=== PATIENT | female | born 1975 | race Asian ===

== ENCOUNTER 2016-05-11 09:21 | Outpatient (CLI) | payer OTHER ==
--- NOTE | 2016-05-12 08:30 | Mammography Report ---
BILATERAL DIGITAL SCREENING MAMMOGRAM with CAD: 05/11/16 09:21:00 CLINICAL: Routine screening. COMPARISON:05/06/15 and 02/17/11 left mammogram. FINDINGS: There are scattered areas of fibroglandular density.A left lower inner focal asymmetry is unchanged compared to prior exams. No new mass, architectural distortion or suspicious calcifications. IMPRESSION: No mammographic evidence of malignancy. BI-RADS CATEGORY: 2 -- Benign RECOMMENDATION: Routine mammographic screening in one year. COMMENT: Patient follow-up letters are generated by our [employer] application.
== END 2016-05-11 09:22 | disposition home or self-care (01) ==
LOC: SPVWC 09:21
PROVIDERS: ATTEND Family Medicine
DX: Z12.31 Encounter for screening mammogram for malignant neoplasm of breast (principal)
CPT/HCPCS: 77067; G0202

== ENCOUNTER 2016-12-30 09:35 | Outpatient (CLI) | payer OTHER ==
--- NOTE | 2016-12-30 11:37 | Fluoroscopy Report ---
BARIUM SWALLOW: History: Dysphagia. The patient swallows barium without difficulty demonstrating normal coordination. The cervical and thoracic portions of the esophagus demonstrate normal contours and there is normal peristalsis. There is no evidence of a hiatus hernia and no reflux is demonstrated. IMPRESSION: Normal study.
== END 2016-12-30 09:36 | disposition home or self-care (01) ==
LOC: FLUORO 09:35
PROVIDERS: ATTEND Family Medicine
DX: R13.10 Dysphagia, unspecified (principal)
CPT/HCPCS: 74220

== ENCOUNTER 2017-05-31 08:57 | Outpatient (CLI) | payer OTHER ==
--- NOTE | 2017-05-31 16:00 | Ultrasound Report ---
ABDOMINAL ULTRASOUND: 05/31/17 08:57:00 CLINICAL: Epigastric pain. FINDINGS: High-resolution ultrasound demonstrates a normal liver with normal size, contour and echogenicity. The right lobe measures 15.2 cm in length. No liver mass. Normal hepatic vasculature and inferior vena cava. Gallbladder is partially contracted with too numerous to count shadowing calculi and echogenic sludge. The gallbladder is tender to pressure of the probe. The gallbladder wall measures 2.0mm. Normal intrahepatic and extra hepatic bile ducts. The common bile duct measures 3.0 mm diameter. The pancreas is suboptimally imaged due to bowel gas and body habitus. The proximal pancreatic body is normal but the pancreatic head and tail are not well imaged. Normal abdominal aorta measuring 1.8 cm. A normal spleen measures 8.9 x 3.5 x 4.7cm. Normal renal echogenicity and normal non-dilated renal collecting systems and ureters. The right kidney measures 9.3 x 4.0 x 4.7cm. The left kidney measures 10.4 x 5.9 x 5.5cm. An upper pole left renal cyst measures 2.7 x 2.4 x 2.2 cm. No renal mass or calculus. No ascites. IMPRESSION: 1. Cholelithiasis with a partially contracted gallbladder and a positive Burgos's sign. However, no other signs to suggest acute cholecystitis. 2. Normal bile ducts. 3. Limited imaging of the pancreas.
== END 2017-05-31 08:58 | disposition home or self-care (01) ==
LOC: SPVWC 08:57
PROVIDERS: ATTEND Internal Medicine Gastroenterology
DX: K80.20 Calculus of gallbladder without cholecystitis without obstruction (principal); N28.1 Cyst of kidney, acquired
CPT/HCPCS: 76700

== ENCOUNTER 2017-06-06 10:37 | Outpatient (CLI) | payer OTHER ==
--- NOTE | 2017-06-06 14:24 | Mammography Report ---
BILATERAL DIGITAL SCREENING MAMMOGRAM with CAD: 06/06/17 10:37:00 CLINICAL: Routine screening. COMPARISON:05/11/16 FINDINGS: The breasts are heterogeneously dense, which may obscure small masses.A left lower inner focal asymmetry is less prominent than on the last exam. No mass, architectural distortion or suspicious calcifications. IMPRESSION: No mammographic evidence of malignancy. BI-RADS CATEGORY: 2 - - Benign RECOMMENDATION: Routine mammographic screening in one year. COMMENT: Patient follow-up letters are generated by our [employer] application.
== END 2017-06-06 10:38 | disposition home or self-care (01) ==
LOC: SPVWC 10:37
PROVIDERS: ATTEND Family Medicine
DX: Z12.31 Encounter for screening mammogram for malignant neoplasm of breast (principal)
CPT/HCPCS: 77067

== ENCOUNTER 2017-06-27 09:14 | Outpatient (CLI) | payer OTHER ==
--- NOTE | 2017-06-28 08:08 | Mammography Report ---
BONE DEXA:06/27/17 09:14:00 CLINICAL: Long-term drug therapy. No comparison. TECHNIQUE: Two site bone DEXA performed on an Hologic scanner. FINDINGS: The average BMD of the lumbar spine L1-L4 is 1.031g/cm squared with a T-score of -0.1 and a Z-score of +0.1. The average BMD of the left hip is 0.951g/cm squared with a T-score of +0.1 and a Z-score of +0.3. IMPRESSION: WHO classification: Normal with average fracture risk based on both spine and left hip measurements. RECOMMENDATION: Clinical correlation and routine screening. DEFINITIONS: BMD = Bone Mineral Density T-score = BMD related to mean peak bone mass of young adult (mean expressed in Standard Deviation) Z-score = Age matched BMD expressed in SD World Health Organization (WHO) Diagnostic Criteria Normal T-score > -1 SD Osteopenia T-score between -1 and -2.4 SD Osteoporosis T-score -2.5 SD or below NOTE: BMD is not the only risk factor for fracture. One should also consider factors such as the patient's age, risk of falling, previous osteoporotic fracture, family history of osteoporotic fractures, current smoker, and low body weight. Z-scores are not calculated if >80 years of age.
== END 2017-06-27 09:15 | disposition home or self-care (01) ==
LOC: SPVWC 09:14
PROVIDERS: ATTEND Family Medicine
DX: Z13.820 Encounter for screening for osteoporosis (principal); Z79.899 Other long term (current) drug therapy
CPT/HCPCS: 77080

== ENCOUNTER 2017-07-12 05:53 | Day surgery (SDC) | payer OTHER ==
[2017-07-12] MEDS ORDERED: ANCEF/STERILE WATER 2 GM/20 ML IV NR (06:00)
[2017-07-12] MEDS ORDERED: NACL BACTERIOSTATIC INFILTRATI ONE (06:46)
--- NOTE | 2017-07-12 07:25 | Anesthesia Day of Surgery ---
Anesthesia Day of Surgery - Day of Surgery Patient Examined: Yes Patient H&P Reviewed: Yes Patient is NPO: Yes
--- NOTE | 2017-07-12 07:25 | Anesthesia Consultation ---
Anesthesia Consult and Med Hx Date of service: 07/12/17 - Airway Anesthetic Teeth Evaluation: Good, Crowns ROM Head & Neck: Adequate Mental/Hyoid Distance: Adequate Mallampati Class: Class I Intubation Access Assessment: Good - Pulmonary Exam CTA: Yes - Cardiac Exam Cardiac Exam: RRR - Pre-Operative Health Status ASA Pre-Surgery Classification: ASA2 Proposed Anesthetic Plan: General - Central Nervous System Hx Psychiatric Problems: No - Gastrointestinal Hx Gastroesophageal Reflux Disease: Yes - Other Systems Hx Cancer: No - Additional Comments Anesthesia Medical History Comments: pulmonary sarcoidosis, interstitial cystitis
[2017-07-12] MEDS ORDERED: MARCAINE 0.25% INFILTRATI ONE ×2 (07:41→08:30)
[2017-07-12] MEDS ORDERED: TORADOL IV PRN (07:43)
[2017-07-12] MEDS ORDERED: REGLAN IV PRN (07:43)
[2017-07-12] MEDS ORDERED: DEMEROL IV PRN (07:43)
[2017-07-12] MEDS ORDERED: NARCAN 0.4 MG/1 ML IV PRN (07:43)
[2017-07-12] MEDS ORDERED: PERCOCET 5/325 PO PRN (07:43)
[2017-07-12] MEDS ORDERED: ZOFRAN IV PRN (07:43)
[2017-07-12] MEDS ORDERED: LACTATED RINGERS 1,000 ML IV SCH ×2 (07:44→08:00)
[2017-07-12] MEDS ORDERED: SUBLIMAZE ONE (07:54)
[2017-07-12] MEDS ORDERED: DIPRIVAN 10 MG/ML IV ONE (07:54)
[2017-07-12] MEDS ORDERED: PEPCID IV NR (08:00)
[2017-07-12] MEDS ORDERED: VERSED IV NR (08:00)
[2017-07-12] MEDS ORDERED: TRANSDERM-SCOP TD NR (08:00)
[2017-07-12] MEDS ORDERED: DILAUDID ONE (08:27)
[2017-07-12] MEDS ORDERED: ZOFRAN ONE ×2 (08:30→08:55)
[2017-07-12] MEDS ORDERED: ZEMURON IV ONE (08:30)
[2017-07-12] MEDS ORDERED: XYLOCAINE MPF 2% ONE (08:55)
[2017-07-12] MEDS ORDERED: NEOSTIGMINE ONE (08:55)
[2017-07-12] MEDS ORDERED: ROBINUL ONE (08:55)
--- NOTE | 2017-07-12 09:11 | Post Operative Note ---
Pre-op diagnosis: gallstones with bilairy colic Post-op diagnosis: same Findings: as above Procedure: laparoscopic cholecystectomy Anesthesia: GETA Surgeon: STEPHEN RAZA Senior Mechanical Development Engineer: TIFF KELLOGG Estimated blood loss: minimal Pathology: list (gallbladder) Specimen disposition: to lab Condition: stable Disposition: PACU
--- NOTE | 2017-07-12 09:13 | Discharge Summary ---
Short Stay Discharge Plan Weight Bearing Status: Full Weight Bearing Diet: regular Wound: open to air Follow up with: NAYAN HERNANDEZ MD [Primary Care Provider] - 7 Days Prescriptions: Ondansetron [Zofran TAB] 4 mg PO Q8HR PRN #14 tablet PRN Reason: Nausea oxyCODONE /ACETAMINOPHEN [Percocet 5/325] 1 tab PO Q4HR PRN #20 tab PRN Reason: Pain
[2017-07-12] MEDS: DILAUDID IV PRN ×3 (09:20→09:50)
--- NOTE | 2017-07-12 09:37 | Operative Report ---
A 41-year-old female. PREOPERATIVE DIAGNOSIS: Biliary colic with gallstones. POSTOPERATIVE DIAGNOSIS: Biliary colic with gallstones. OPERATIVE PROCEDURE: Laparoscopic cholecystectomy. ANESTHESIA: General endotracheal. SURGEON: Ziyad Dillard MD.. OCCUPATIONAL NURSE: Dr. Leung. SPECIMEN: Gallbladder. BLOOD LOSS: Minimal. INDICATIONS: A 41-year-old female patient presenting with right upper quadrant pain, nausea. Gallbladder ultrasound showed multiple stones and wall thickening. Liver functions are normal. She has undergone an abdominal hysterectomy several years ago. FINDINGS: Gallbladder had no adhesions, no obvious wall thickening. It contained multiple medium and large multifaceted cholesterol stones. Cystic duct is of normal caliber. Cystic duct entry into the gallbladder, it was a few centimeters down distally than the usual location. The liver showed no evidence of fatty infiltration. Minimal adhesions in the lower abdomen between the omentum and the anterior abdominal wall was noted. No abdominal wall hernia evident. DESCRIPTION OF PROCEDURE: After satisfactory induction of general endotracheal anesthesia, abdomen was prepped and draped. A supraumbilical transverse incision was made and a Veress needle was inserted in the peritoneal cavity. After adequate carbon dioxide insufflation up to 15 mmHg, a 5 mm trocar was inserted. Through this, a 5-mm 30-degree angle scope was placed and under direct visualization, an 11 mm epigastric and other two lateral ports were placed. Gallbladder was held at the fundus and at the infundibulum by the assisting surgeon. Cystic duct was well delineated. Cystic bile duct junction was well visualized. Clips were applied to cystic duct as far away from the cystic bile duct junction as possible and the cystic duct was divided. Cystic artery and the posterior branch were independently identified. Clips were applied and divided. Gallbladder was removed from the liver bed by using hook attached to the cautery. No bleeding was encountered from the liver bed. Gallbladder was retrieved into an EndoCatch bag and was pulled out through the epigastric trocar. Trocar was replaced and all the clips were inspected and found to be intact. Hemostasis was adequate. Desufflation was done and all the trocars were removed under direct visualization. All the skin incisions were closed with 4-0 Monocryl sutures. She tolerated the procedure well and was transferred to postanesthesia care unit in satisfactory condition. JOB# [id number] MNN/NTS
[2017-07-12 14:02] VITALS: BP 112/65
--- NOTE | 2017-07-12 14:26 | Post Anesthesia Evaluation ---
- Post Anesthesia Evaluation Patient Participated: Yes Airway Patent: Yes Stable Respiratory Function: Yes Nausea/Vomiting: No Temp > 96.8F: Yes Pain Manageable: Yes Adequeate Hydration: Yes Anesthesia Complications: No
[2017-07-13] MEDS ORDERED: LACTATED RINGERS 1,000 ML IV SCH (06:00)
== END 2017-07-12 11:40 | disposition home or self-care (01) ==
LOC: OR 05:53
PROVIDERS: ATTEND Surgery
DX: K80.10 Calculus of gallbladder with chronic cholecystitis without obstruction (principal); M06.9 Rheumatoid arthritis, unspecified; K21.9 Gastro-esophageal reflux disease without esophagitis; Z90.710 Acquired absence of both cervix and uterus; Z98.890 Other specified postprocedural states; Z88.2 Allergy status to sulfonamides; Z80.3 Family history of malignant neoplasm of breast; Z82.49 Family history of ischemic heart disease and other diseases of the circulatory system
CPT/HCPCS: 47562; 88304; J0690; J1170; J1885; J2250; J2405; J2704; J2710; J3010; J7120

== ENCOUNTER 2017-09-15 08:53 | Outpatient (CLI) | payer OTHER ==
--- NOTE | 2017-09-15 16:54 | Ultrasound Report ---
ABDOMINAL ULTRASOUND: 09/15/17 08:53:00 CLINICAL: Abdominal pain. COMPARISON: 05/31/17 FINDINGS: High-resolution ultrasound demonstrates a normal size liver with normal contour and echogenicity. No liver mass. Normal hepatic vasculature and inferior vena cava. Normal bile duct status post cholecystectomy. The common bile duct measures 5.0 mm diameter. The pancreas is well imaged and normal. Normal abdominal aorta measuring 2.1 cm maximum diameter. A normal spleen measures 9.2 x 4.5 x 5.1 cm. low normal size kidneys with normal echogenicity and normal non-dilated renal collecting systems and ureters. A left central parapelvic cyst measures 2.7 x 2.5 x 2.7 cm. The right kidney measures 9.1 x 4.0 x 4.5 cm. The left kidney measures 9.1 x 5.4 x 4.5 cm. No renal mass or calculus. No ascites or mass. IMPRESSION: 1. Normal bile ducts status post cholecystectomy. 2. A 2.7 cm benign left renal cyst. 3. No explanation for abdominal pain.
--- NOTE | 2017-09-15 16:57 | Ultrasound Report ---
TRANSABDOMINAL AND TRANSVAGINAL PELVIC ULTRASOUND: 09/15/17 08:53:00 CLINICAL: Pelvic pain. UTI. FINDINGS: Transabdominal and transvaginal pelvic ultrasound demonstrated absence of the uterus and a normal vaginal cuff. Bilateral ovarian cysts. A hemorrhagic cyst versus endometrioma of the right ovary measures 1.3 x 0.8 cm. A dominant cyst of the right ovary measures 1.6 cm. A dominant cyst of the left ovary measures 4.4 x 3.8 x 3.9 cm. The right ovary measures 3.5 x 2.4 x 3.5cm. The left ovary measures 6.1 x 5.1 x 4.6cm. No adnexal mass. No free fluid. Normal urinary bladder. IMPRESSION: 1. Status post hysterectomy. 2. A 1.3 cm hemorrhagic cyst versus endometrioma of the right ovary. 3. A dominant 4.4 cm cyst of the left ovary.
== END 2017-09-15 08:54 | disposition home or self-care (01) ==
LOC: SPVWC 08:53
PROVIDERS: ATTEND Family Medicine
DX: N28.1 Cyst of kidney, acquired (principal); N39.0 Urinary tract infection, site not specified; N83.201 Unspecified ovarian cyst, right side; N83.202 Unspecified ovarian cyst, left side; K21.9 Gastro-esophageal reflux disease without esophagitis; Z90.710 Acquired absence of both cervix and uterus; Z90.49 Acquired absence of other specified parts of digestive tract
CPT/HCPCS: 76700; 76830; 76856

== ENCOUNTER 2018-06-06 09:37 | Outpatient (CLI) | payer OTHER ==
--- NOTE | 2018-06-07 09:49 | Mammography Report ---
BILATERAL DIGITAL SCREENING MAMMOGRAM with CAD: 06/06/18 09:37:00 CLINICAL: Routine screening. COMPARISON:06/06/17 FINDINGS: The breasts are heterogeneously dense, which may obscure small masses. No mass, architectural distortion or suspicious calcifications. IMPRESSION: No mammographic evidence of malignancy. BI-RADS CATEGORY: 1 - - Negative RECOMMENDATION: Routine mammographic screening in one year. COMMENT: Patient follow-up letters are generated by our [employer] application.
== END 2018-06-06 09:38 | disposition home or self-care (01) ==
LOC: SPVWC 09:37
PROVIDERS: ATTEND Family Medicine
DX: Z12.31 Encounter for screening mammogram for malignant neoplasm of breast (principal); K21.9 Gastro-esophageal reflux disease without esophagitis
CPT/HCPCS: 77067

== ENCOUNTER 2020-05-15 09:20 | Outpatient (CLI) | payer OTHER ==
--- NOTE | 2020-05-15 12:11 | Mammography Report ---
DIGITAL SCREENING MAMMOGRAM WITH CAD, 05/15/2020 CLINICAL INFORMATION / INDICATION: Routine screening mammography. TECHNIQUE: Digital bilateral 2D mammography was obtained in the craniocaudal and mediolateral obliqu e projections. This examination was interpreted with the benefit of Computer-Aided Detection analysis . COMPARISON: 06/06/2018, 06/06/2017, 05/11/2016 FINDINGS: Breast Density: There are scattered areas of fibroglandular density. No dominant mass, suspicious calcifications, or architectural distortion in either breast. IMPRESSION: No mammographic evidence of malignancy. Follow up recommendation: Routine yearly BI-RADS Category 1: Negative. A "normal" or negative report should not discourage follow up or biopsy of a clinically significant f inding. A written summary of these findings will be mailed to the patient. The patient will be entered into a mammography reporting system which will generate a reminder letter for the patient's next appointmen t at the appropriate interval. The [employer] recommends yearly mammograms starting at age 40 and continuing as l olivia as a woman is in good health. Breast MRI is recommended for women with an approximate 20-25% or greater lifetime risk of breast cancer, including women with a strong family history of breast or ova etta cancer or who have been treated for Hodgkin's disease. Signer Name: Nakia Mueller MD Signed: 05/15/2020 12:06 PM Workstation Name: [email or web address]
== END 2020-05-15 09:21 | disposition home or self-care (01) ==
LOC: SPVWC 09:20
PROVIDERS: ATTEND Family Medicine
DX: Z12.31 Encounter for screening mammogram for malignant neoplasm of breast (principal)
CPT/HCPCS: 77067

== ENCOUNTER 2021-05-19 08:40 | Outpatient (CLI) | payer OTHER ==
--- NOTE | 2021-05-20 09:46 | Mammography Report ---
DIGITAL SCREENING MAMMOGRAM WITH CAD, 05/19/2021 CLINICAL INFORMATION / INDICATION: Routine screening mammography. SCREENING MAMMO Z12.31 TECHNIQUE: Digital bilateral 2D mammography was obtained in the craniocaudal and mediolateral obliqu e projections. This examination was interpreted with the benefit of Computer-Aided Detection analysis . COMPARISON: 05/15/2020 FINDINGS: Breast Density: There are scattered areas of fibroglandular density. No dominant mass, suspicious calcifications, or architectural distortion in either breast. IMPRESSION: No mammographic evidence of malignancy. Follow up recommendation: Routine yearly BI-RADS Category 1: NEGATIVE A "normal" or negative report should not discourage follow up or biopsy of a clinically significant f inding. A written summary of these findings will be mailed to the patient. The patient will be entered into a mammography reporting system which will generate a reminder letter for the patient's next appointmen t at the appropriate interval. The [employer] recommends yearly mammograms starting at age 40 and continuing as l olivia as a woman is in good health. Breast MRI is recommended for women with an approximate 20-25% or greater lifetime risk of breast cancer, including women with a strong family history of breast or ova etta cancer or who have been treated for Hodgkin's disease. Signer Name: Armin Salvador MD Signed: 05/20/2021 9:42 AM Workstation Name: [email or web address]
== END 2021-05-19 08:41 | disposition home or self-care (01) ==
LOC: SPVWC 08:40
PROVIDERS: ATTEND Clinical Nurse Specialist Family Health
DX: Z12.31 Encounter for screening mammogram for malignant neoplasm of breast (principal)
CPT/HCPCS: 77067